=== PATIENT | male | born 1985 | race Caucasian/White ===

== ENCOUNTER 2017-09-26 11:59 | Emergency (ER) | payer BC ==
[2017-09-26 12:09] VITALS: RESP 18
[2017-09-26] MEDS ORDERED: LABETALOL 5 MG/ML VIAL MDV IVP STA ×2 (12:16→13:48)
--- NOTE | 2017-09-26 12:39 | ED ---
General Adult HPI - General Chief complaint: Recheck/Abnormal Lab/Rx Stated complaint: Hypertension-Sent by [facility] Time Seen by Provider: 09/26/17 12:06 Source: patient, RN notes reviewed Mode of arrival: ambulatory Limitations: no limitations - History of Present Illness Initial comments: patient 31-year-old male significant past medical history for hypertension, who presents emergency room today with a chief complaint of a elevated blood pressure. Patient does admit that she is having headaches off and on over the last few weeks. States had increased headache this morning when he woke up. Systems at work and his blood pressure checked there was elevated was advised to go to urgent care. He does admit to urgent care checked his blood pressure and symptoms to the emergency room. Patient currently rates his headache./10 located in the front of his head. Patient states history of hypertension states he has not been on his medications for LAST year. States he used lisinopril 20 mg. Patient denies any other complaints. Patient denies any recent fever, chills, shortness of breath, chest pain, back pain, abdominal pain , nausea or vomiting, numbness or tingling, dysuria or hematuria, constipation or diarrhea, headaches or visual changes, or any other complaints. - Related Data Previous Rx's Medication Instructions Recorded Lisinopril [Prinivil] 20 mg PO DAILY #30 tablet 09/26/17 metFORMIN HCL [Glucophage Xr] 500 mg PO DAILY #30 tab.er.24h 09/26/17 Allergies Allergy/AdvReac Type Severity Reaction Status Date / Time No Known Allergies Allergy Verified 09/26/17 12:44 Review of Systems ROS Statement: Those systems with pertinent positive or pertinent negative responses have been documented in the HPI. ROS Other: All systems not noted in ROS Statement are negative. Past Medical History Past Medical History: Diabetes Mellitus, Hypertension History of Any Multi-Drug Resistant Organisms: None Reported Past Surgical History: No Surgical Hx Reported Past Psychological History: No Psychological Hx Reported Smoking Status: Never smoker Past Alcohol Use History: None Reported Past Drug Use History: None Reported General Exam - General Exam Comments Initial Comments: General: The patient is awake and alert, in no distress, and does not appear acutely ill. Eye: Pupils are equal, round and reactive to light, extra-ocular movements are intact. No nystagmus. There is normal conjunctiva bilaterally. No signs of icterus. Ears, nose, mouth and throat: There are moist mucous membranes and no oral lesions. Neck: The neck is supple, there is no tenderness or JVD. Cardiovascular: There is a regular rate and rhythm. No murmur, rub or gallop is appreciated. Respiratory: Lungs are clear to auscultation, respirations are non-labored, breath sounds are equal. No wheezes, stridor, rales, or rhonchi. Gastrointestinal: Soft, non-distended, non-tender abdomen without masses or organomegaly noted. There is no rebound or guarding present. No CVA tenderness. Bowel sounds are unremarkable. Musculoskeletal: Normal ROM, no tenderness. Strength 5/5. Sensation intact. Pulses equal bilaterally 2+. Neurological: A&O x 3. CN II-XII intact, There are no obvious motor or sensory deficits. Coordination appears grossly intact. Speech is normal. Skin: Skin is warm and dry and no rashes or lesions are noted. Psychiatric: Cooperative, appropriate mood & affect, normal judgment. Limitations: no limitations Course Vital Signs 09/26/17 09/26/17 09/26/17 12:05 12:13 12:48 Temperature 98.2 F Pulse Rate 104 H 104 H Respiratory 18 Rate Blood Pressure 226/137 251/148 214/129 O2 Sat by Pulse 98 Oximetry 09/26/17 09/26/17 09/26/17 13:01 13:21 13:31 Temperature Pulse Rate 80 80 84 Respiratory Rate Blood Pressure 179/102 193/116 173/104 O2 Sat by Pulse Oximetry EKG Findings - EKG Comments: EKG Findings:: EKG performed at 1243: A 12-lead EKG was performed and interpreted by me as showing the following: Rate is 94, and rhythm is normal sinus. There are normal QRS complexes and normal R-wave progression. ST segments have no elevation or depression, and UT segments appear normal. Medical Decision Making - Medical Decision Making patient reexamined at this time and shows no signs of distress. His blood pressure much improved here in emergency room. He does admit that is feeling better. He was given labetalol 20 mg IV. Patient also given lisinopril 20 mg. He was on lisinopril in the past. Will be started back on this medication. His blood glucose also elevated on his labs. Does have a history of diabetes was on metformin but is also not been taking this for the past year. Patient does have an appointment with his family doctor next week. Patient will be started back on his lisinopril and metformin advised follow-up the family doctor return if any symptoms increase or worsen. He states understanding and is in agreement. - Lab Data Result diagrams: 09/26/17 12:37 09/26/17 12:37 Lab Results 09/26/17 09/26/17 Range/Units 12:37 12:37 WBC 5.9 (3.8-10.6) k/uL RBC 6.18 H (4.30-5.90) m/uL Hgb 16.4 (13.0-17.5) gm/dL Hct 50.2 (39.0-53.0) % MCV 81.2 (80.0-100.0) fL MCH 26.6 (25.0-35.0) pg MCHC 32.7 (31.0-37.0) g/dL RDW 15.3 (11.5-15.5) % Plt Count 207 (150-450) k/uL Neutrophils % 68 % Lymphocytes % 25 % Monocytes % 4 % Eosinophils % 2 % Basophils % 0 % Neutrophils # 4.0 (1.3-7.7) k/uL Lymphocytes # 1.5 (1.0-4.8) k/uL Monocytes # 0.2 (0-1.0) k/uL Eosinophils # 0.1 (0-0.7) k/uL Basophils # 0.0 (0-0.2) k/uL Sodium 136 L (137-145) mmol/L Potassium 4.9 (3.5-5.1) mmol/L Chloride 100 (98-107) mmol/L Carbon Dioxide 23 (22-30) mmol/L Anion Gap 13 mmol/L BUN 10 (9-20) mg/dL Creatinine 0.60 L (0.66-1.25) mg/dL Est GFR (MDRD) Af Amer >60 (>60 ml/min/1.73 sqM) Est GFR (MDRD) Non-Af >60 (>60 ml/min/1.73 sqM) Glucose 268 H (74-99) mg/dL Calcium 9.4 (8.4-10.2) mg/dL Total Bilirubin 1.5 H (0.2-1.3) mg/dL AST 68 H (17-59) U/L ALT 66 (21-72) U/L Alkaline Phosphatase 119 (38-126) U/L Total Protein 8.4 H (6.3-8.2) g/dL Albumin 4.7 (3.5-5.0) g/dL Disposition Clinical Impression: Hypertensive urgency, Diabetes Disposition: HOME SELF-CARE Condition: Good Instructions: Hypertension (ED) Additional Instructions: Please use medication as discussed. Please follow-up with family doctor in the next 2 days. Please return to emergency room if the symptoms increase or worsen or for any other concerns. Prescriptions: Lisinopril [Prinivil] 20 mg PO DAILY #30 tablet metFORMIN HCL [Glucophage Xr] 500 mg PO DAILY #30 tab.er.24h Referrals: Rosa Alvarez MD [Primary Care Provider] - 1-2 days Time of Disposition: 14:11
[2017-09-26 12:48] LABS: Basophils % (A) 0 %; CH 27.2; CHCM 33.7; Eosinophils # (A) 0.1 k/uL (0-0.7); Eosinophils % (A) 2 %; HCT 50.2 % (39.0-53.0); HDW 2.58; HGB 16.4 gm/dL (13.0-17.5); Luc # (Auto) 0.03; Luc % (Auto) 1; Lymphocytes # (A) 1.5 k/uL (1.0-4.8); Lymphocytes % (A) 25 %; MCH 26.6 pg (25.0-35.0); MCHC 32.7 g/dL (31.0-37.0); MCV 81.2 fL (80.0-100.0); Mean Platelet Volume 8.6; Monocytes # (A) 0.2 k/uL (0-1.0); Monocytes % (A) 4 %; Neutrophils % (A) 68 %; RBC 6.18 m/uL (4.30-5.90); RDW 15.3 % (11.5-15.5); WBC 5.9 k/uL (3.8-10.6); WBC (Perox) 5.41
[2017-09-26 12:58] LABS: ALT 66 U/L (21-72); AST 68 U/L (17-59); Alkaline Phosphatase 119 U/L (38-126); Anion Gap 13 mmol/L; Blood Urea Nitrogen 10 mg/dL (9-20); Calcium 9.4 mg/dL (8.4-10.2); Carbon Dioxide 23 mmol/L (22-30); Chloride 100 mmol/L (98-107); Glucose 268 mg/dL (74-99); Non-African American GFR(MDRD) >60 (>60 ml/min/1.73 sqM); Sodium 136 mmol/L (137-145); Total Bilirubin 1.5 mg/dL (0.2-1.3); Total Protein 8.4 g/dL (6.3-8.2)
[2017-09-26 13:01] LABS: Potassium 4.9 mmol/L (3.5-5.1)
[2017-09-26] MEDS ORDERED: LISINOPRIL 20 MG TAB PO STA (13:41)
[2017-09-26 14:47] VITALS: BP 169/99; PULSE 76; TEMP 97.9
== END 2017-09-26 14:47 | disposition home or self-care (01) ==
LOC: EC 11:59
DX: I16.0 Hypertensive urgency (principal); E11.9 Type 2 diabetes mellitus without complications; I10 Essential (primary) hypertension; Z53.8 Procedure and treatment not carried out for other reasons
CPT/HCPCS: 36415; 80053; 85025; 93005; 96374; 99283